=== PATIENT | female | born 1980 | race African-American/Black ===

== ENCOUNTER 2023-03-30 00:36 | Emergency (ER) | payer MEDICAID ==
[~2023-03-30] VITALS: Ht 165.1 cm; Wt 170.0 kg
[2023-03-30 00:40] VITALS: BP 140/82; PULSE 92; RESP 18; TEMP 98.2; O2SAT 96
[2023-03-30] MEDS ORDERED: ACETAMINOPHEN 500MG TABLET PO ONE (03:30)
== END 2023-03-30 06:59 | disposition home or self-care (01) ==
LOC: ER 00:36
DX: M25.551 Pain in right hip (principal); M25.552 Pain in left hip; G89.29 Other chronic pain; E11.9 Type 2 diabetes mellitus without complications
CPT/HCPCS: 72192; 81025; 93970; 99284

== ENCOUNTER 2023-04-03 08:42 | Emergency (ER) | payer MEDICAID ==
[~2023-04-03] VITALS: Ht 167.6 cm; Wt 113.0 kg
[2023-04-03 08:48] VITALS: BP 187/129; PULSE 104; RESP 18; O2SAT 98
[2023-04-03] MEDS ORDERED: ACETAMINOPHEN 325MG TABLET PO ONE (09:00)
[2023-04-03 09:28] VITALS: TEMP 98.1
[2023-04-03] MEDS ORDERED: TOPUD PO (10:12)
== END 2023-04-03 10:36 | disposition home or self-care (01) ==
LOC: ER 08:42
DX: M79.605 Pain in left leg (principal); M79.604 Pain in right leg; E11.9 Type 2 diabetes mellitus without complications
CPT/HCPCS: 99283

== ENCOUNTER 2023-04-08 21:28 | Emergency (ER) | payer MEDICAID ==
[~2023-04-08] VITALS: Ht 167.6 cm; Wt 61.0 kg
[~2023-04-08 21:28] MED LIST: TOPUD PO
[2023-04-08 21:39] VITALS: TEMP 98.6; O2SAT 99
[2023-04-09] MEDS ORDERED: ACETAMINOPHEN 325MG TABLET PO ONE (02:30)
[2023-04-09] MEDS ORDERED: IBUPROFEN 400MG TABLET PO ONE (02:30)
[2023-04-09 02:46] VITALS: BP 134/85; PULSE 95; RESP 16
== END 2023-04-09 07:42 | disposition home or self-care (01) ==
LOC: ER 21:28
DX: M79.10 Myalgia, unspecified site (principal); M79.671 Pain in right foot; M79.672 Pain in left foot; F31.9 Bipolar disorder, unspecified; E11.9 Type 2 diabetes mellitus without complications; I10 Essential (primary) hypertension; Z87.891 Personal history of nicotine dependence
CPT/HCPCS: 99283; L0172